=== PATIENT | male | born 1980 | race Caucasian/White ===

== ENCOUNTER 2017-08-20 19:24 | Inpatient (IN) | payer OTHER ==
[~2017-08-20] VITALS: Ht 188 cm; Wt 68.0 kg
[2017-08-20 19:45] VITALS: BP 139/82
[2017-08-20] MEDS ORDERED: DICYCLOMINE HCL 20 MG TABLET PO PRN (21:30)
[2017-08-20] MEDS ORDERED: ONDANSETRON 4 MG/2 ML VIAL IM PRN (21:30)
[2017-08-20] MEDS ORDERED: ACETAMINOPHEN 325 MG TABLET PO PRN (21:30)
[2017-08-20] MEDS ORDERED: DIAZEPAM 5 MG TABLET PO PRN (21:30)
[2017-08-20] MEDS ORDERED: BUPRENORPHINE HCL 2 MG TAB.SUBL SL PRN (21:30)
[2017-08-20] MEDS ORDERED: DIAZEPAM 10 MG TABLET PO PRN ×2 (21:30)
[2017-08-20] MEDS ORDERED: LOPERAMIDE HCL 2 MG CAPSULE PO PRN ×2 (21:30)
[2017-08-20] MEDS ORDERED: LORAZEPAM 2 MG/1 ML VIAL IM PRN (21:30)
[2017-08-20] MEDS ORDERED: DIAZEPAM 10 MG TABLET PO SCH (22:00)
[2017-08-20 22:21] LABS: *AMPHETAMINE, URINE NEGATIVE (NEGATIVE); *BARBITURATE, URINE NEGATIVE (NEGATIVE); *CANNABINOID, URINE NEGATIVE (NEGATIVE); *COCCAINE, URINE NEGATIVE (NEGATIVE); *OPIATE, URINE NEGATIVE (NEGATIVE); *PHENCYCLIDINE SCREEN,URINE NEGATIVE (NEGATIVE)
[2017-08-20] MEDS ORDERED: [UNRECOGNIZED DRUG - OTHER] NAS (22:48)
[2017-08-20] MEDS ORDERED: [UNRECOGNIZED DRUG - OTHER] (22:48)
[2017-08-20] MEDS ORDERED: [UNRECOGNIZED DRUG - OTHER] PO (22:48)
[2017-08-20] MEDS ORDERED: DIPH25CA83 PO (22:48)
[2017-08-20] MEDS ORDERED: BISA-79 PO (22:48)
[2017-08-20] MEDS ORDERED: DOCU100C36 PO (22:48)
[2017-08-20] MEDS ORDERED: TRAZ-147 PO (22:48)
[2017-08-20] MEDS ORDERED: GING500C PO (22:48)
[2017-08-20] MEDS ORDERED: 5-HY50CA2 PO (22:48)
[2017-08-20] MEDS ORDERED: ERYT3.5O24 EACHEYE (22:48)
[2017-08-20] MEDS ORDERED: LOPE2TAB57 PO (22:48)
[2017-08-20] MEDS ORDERED: BISM262T15 PO (22:48)
[2017-08-20] MEDS ORDERED: CETI-102 PO (22:48)
[2017-08-20] MEDS ORDERED: [UNRECOGNIZED DRUG - OTHER] PO (22:48)
[2017-08-20] MEDS ORDERED: [UNRECOGNIZED DRUG - OTHER] PO (22:48)
[2017-08-20] MEDS ORDERED: [UNRECOGNIZED DRUG - CODE] TP (22:48)
[2017-08-20] MEDS ORDERED: [UNRECOGNIZED DRUG - OTHER] (22:48)
[2017-08-20] MEDS ORDERED: MECL-102 PO (22:48)
[2017-08-20] MEDS ORDERED: CALC500T13 PO (22:48)
[2017-08-20] MEDS ORDERED: [UNRECOGNIZED DRUG - OTHER] PO (22:48)
[2017-08-20] MEDS ORDERED: Sinex NAS (22:48)
[2017-08-20] MEDS ORDERED: CITA10TA9 PO (22:48)
[2017-08-20] MEDS ORDERED: IBUP100O18 PO (22:48)
[2017-08-20] MEDS ORDERED: NAPH15DR62 OP (22:48)
[2017-08-20] MEDS ORDERED: NEOM14.216 TP (22:48)
[2017-08-20] MEDS ORDERED: HYPR15DR4 OP (22:48)
[2017-08-20] MEDS ORDERED: SODI126M NS (22:48)
[2017-08-20] MEDS ORDERED: HYDR28GE TP (22:48)
[2017-08-20] MEDS ORDERED: POLY10DR3 OP (22:48)
[2017-08-20] MEDS ORDERED: [UNRECOGNIZED DRUG - OTHER] (22:49)
[2017-08-20 23:08] VITALS: BP 128/87
[2017-08-20] MEDS ORDERED: DIAZEPAM 10 MG TABLET ONE (23:10)
[2017-08-20] MEDS ORDERED: CLONIDINE HCL 0.1 MG TABLET ONE (23:10)
[2017-08-20] MEDS ORDERED: METHOCARBAMOL 750 MG TABLET ONE (23:10)
[2017-08-20] MEDS ORDERED: ONDANSETRON ODT 4 MG TAB.RAPDIS ONE (23:11)
[2017-08-20] MEDS: METHOCARBAMOL 750 MG TABLET PO PRN (23:12)
[2017-08-20] MEDS: ONDANSETRON ODT 4 MG TAB.RAPDIS SL PRN (23:13)
[2017-08-21 02:40] VITALS: BP 147/92
[2017-08-21] MEDS: MAGNESIUM HYDROXIDE 30 ML LIQUID UDC PO PRN (02:44)
[2017-08-21] MEDS ORDERED: BUPRENORPHINE HCL 2 MG TAB.SUBL SL ONE ×2 (02:45→12:15)
[2017-08-21] MEDS ORDERED: MAGNESIUM HYDROXIDE 30 ML LIQUID UDC ONE (02:50)
[2017-08-21] MEDS: MAG HYDROX/AL HYDROX/SIMETH 30 ML LIQUID UDC PO PRN (03:24)
[2017-08-21] MEDS ORDERED: MAG HYDROX/AL HYDROX/SIMETH 30 ML LIQUID UDC ONE (03:36)
[2017-08-21 04:00] VITALS: BP 129/79
[2017-08-21] MEDS ORDERED: DIAZEPAM 5 MG TABLET ONE (04:11)
[2017-08-21 08:00] VITALS: BP 125/81
[2017-08-21 08:17] LABS: BASOPHILS % (AUTO) 0.9 % (0.0-2.0); EOSINOPHILS # (AUTO) 0.2 K/uL (0.0-0.7); EOSINOPHILS % (AUTO) 3.5 % (0.0-7.0); HEMATOCRIT 40.6 % (36.7-47.1); HEMOGLOBIN 14.5 g/dL (12.5-16.3); LYMPHOCYTES # (AUTO) 1.9 K/uL (20.0-40.0); MEAN CORPUSCULAR HEMOGLOBIN 34.3 uug (23.8-33.4); MEAN CORPUSCULAR HGB CONC 36 g/dL (32.5-36.3); MEAN CORPUSCULAR VOLUME 96.4 fL (73.0-96.2); MONOCYTES # (AUTO) 0.6 K/uL (2.0-10.0); MONOCYTES % (AUTO) 10.3 % (0.0-11.0); NEUTROPHILS # (AUTO) 2.7 K/uL (1.8-8.9); NEUTROPHILS % (AUTO) 50.3 % (38.5-71.5); PLATELET COUNT (AUTO) 226 K/uL (152-348); RED BLOOD CELL COUNT(AUTO) 4.21 MIL/uL (4.06-5.63); WHITE BLOOD COUNT (AUTO) 5.4 K/uL (3.6-10.2)
[2017-08-21 08:19] LABS: ETHANOL < 3 MG/DL (0-0)
[2017-08-21 08:21] LABS: ALANINE AMINOTRANSFERASE 33 U/L (16-63); ALKALINE PHOSPHATASE 52 U/L (50-136); ASPARTATE AMINOTRANSFERASE 21 U/L (15-37); BILIRUBIN,TOTAL 0.3 mg/dL (0.2-1.0); CARBON DIOXIDE 28 mmol/L (21-32); CHLORIDE 103 mmol/L (98-107); CREATININE 0.9 mg/dL (0.6-1.3); GLUCOSE 78 mg/dL (74-106); MAGNESIUM 2.4 mg/dL (1.8-2.4); POTASSIUM 3.7 mmol/L (3.5-5.1); TOTAL PROTEIN, SERUM 7.3 g/dL (6.4-8.2); UREA NITROGEN, BLOOD 9 mg/dL (7-18)
[2017-08-21] MEDS ORDERED: GABAPENTIN 300 MG CAPSULE PO SCH (09:00)
[2017-08-21] MEDS: BUPRENORPHINE HCL 2 MG TAB.SUBL SL SCH ×4 (09:00→21:00)
[2017-08-21] MEDS: DIAZEPAM 10 MG TABLET PO SCH ×3 (09:40→21:54)
[2017-08-21] MEDS: TUBERCULIN,PURIF.PROT.DERIV. 5 TU/0.1 ML TEST ID ONE ×2 (09:40→09:52)
[2017-08-21 12:00] VITALS: BP 110/69
[2017-08-21] MEDS ORDERED: BUPRENORPHINE HCL 2 MG TAB.SUBL SL PRN (16:30)
[2017-08-21] MEDS: BUPRENORPHINE HCL 2 MG TAB.SUBL SL PRN ×2 (17:58→21:53)
[2017-08-21 18:10] VITALS: BP 111/65
[2017-08-21 20:00] VITALS: BP 110/67
[2017-08-21] MEDS: ONDANSETRON ODT 4 MG TAB.RAPDIS SL PRN (20:04)
[2017-08-21] MEDS: GABAPENTIN 300 MG CAPSULE PO SCH (21:00)
[2017-08-21] MEDS: MIRALAX 17 GM POWD.PACK PO PRN (21:54)
[2017-08-22] VITALS: BP 108/66
[2017-08-22] MEDS: diphenhydrAMINE 50 MG CAPSULE PO PRN (01:15)
[2017-08-22] MEDS: BUPRENORPHINE HCL 2 MG TAB.SUBL SL PRN (01:15)
[2017-08-22] MEDS ORDERED: diphenhydrAMINE 50 MG CAPSULE ONE (01:27)
[2017-08-22 04:00] VITALS: BP 105/64
[2017-08-22 05:19] LABS: HEPATITIS B SURFACE AG Negative (Negative)
[2017-08-22 08:00] VITALS: BP 116/73
[2017-08-22] MEDS: DIAZEPAM 5 MG TABLET PO SCH ×4 (08:49→21:40)
[2017-08-22] MEDS: GABAPENTIN 300 MG CAPSULE PO SCH (08:49)
[2017-08-22] MEDS: BUPRENORPHINE HCL 2 MG TAB.SUBL SL SCH ×3 (08:49→21:40)
[2017-08-22] MEDS ORDERED: BUPRENORPHINE HCL 2 MG TAB.SUBL SL SCH ×2 (09:00→15:00)
[2017-08-22 12:00] VITALS: BP 111/76
[2017-08-22] MEDS: GABAPENTIN 400 MG CAPSULE PO SCH ×2 (15:02→21:40)
[2017-08-22 16:00] VITALS: BP 109/74
[2017-08-22 20:00] VITALS: BP 126/80
[2017-08-22] MEDS: MAGNESIUM HYDROXIDE 30 ML LIQUID UDC PO PRN (21:54)
[2017-08-23] VITALS: BP 98/51
[2017-08-23 04:00] VITALS: BP 103/66
[2017-08-23 08:00] VITALS: BP 125/71
[2017-08-23] MEDS: GABAPENTIN 400 MG CAPSULE PO SCH (08:43)
[2017-08-23] MEDS: DIAZEPAM 5 MG TABLET PO SCH ×3 (08:43→21:50)
[2017-08-23] MEDS: BUPRENORPHINE HCL 2 MG TAB.SUBL SL SCH ×3 (08:44→21:50)
[2017-08-23] MEDS: CLONIDINE HCL 0.1 MG TABLET PO PRN (10:29)
[2017-08-23] MEDS: MIRALAX 17 GM POWD.PACK PO PRN (10:30)
[2017-08-23 13:22] VITALS: BP 122/66
[2017-08-23] MEDS ORDERED: MAGNESIUM CITRATE 296 ML BOTTLE PO PRN (13:30)
[2017-08-23] MEDS ORDERED: [UNRECOGNIZED DRUG - OTHER] PO PRN (13:30)
[2017-08-23] MEDS ORDERED: [UNRECOGNIZED DRUG - OTHER] PO PRN (13:30)
[2017-08-23] MEDS ORDERED: DOCUSATE SODIUM 100 MG CAPSULE PO PRN (13:30)
[2017-08-23] MEDS: GABAPENTIN 300 MG CAPSULE PO SCH ×2 (14:34→21:50)
[2017-08-23 16:00] VITALS: BP 118/71
[2017-08-23 20:00] VITALS: BP 113/72
[2017-08-23] MEDS: MAG HYDROX/AL HYDROX/SIMETH 30 ML LIQUID UDC PO PRN (21:52)
[2017-08-24] VITALS: BP 108/67
[2017-08-24 08:00] VITALS: BP 98/60
[2017-08-24] MEDS: METHOCARBAMOL 750 MG TABLET PO PRN (08:35)
[2017-08-24] MEDS: BUPRENORPHINE HCL 2 MG TAB.SUBL SL SCH ×2 (08:35→21:14)
[2017-08-24] MEDS: GABAPENTIN 300 MG CAPSULE PO SCH ×3 (08:35→21:13)
[2017-08-24] MEDS: IBUPROFEN 600 MG TABLET PO PRN (08:35)
[2017-08-24] MEDS: DIAZEPAM 5 MG TABLET PO SCH ×2 (08:35→21:14)
[2017-08-24] MEDS: FLUTICASONE PROP NASAL SPRAY 16 GM BOTTLE NS PRN ×2 (08:50→20:14)
[2017-08-24] MEDS: CLONIDINE HCL 0.1 MG TABLET PO PRN ×2 (10:50→20:06)
[2017-08-24 12:00] VITALS: BP 129/79
[2017-08-24 16:00] VITALS: BP 116/62
[2017-08-24 20:00] VITALS: BP 113/66
[2017-08-25] VITALS: BP 95/60
[2017-08-25 04:00] VITALS: BP 91/63
[2017-08-25] MEDS: METHOCARBAMOL 750 MG TABLET PO PRN (06:22)
[2017-08-25] MEDS: FLUTICASONE PROP NASAL SPRAY 16 GM BOTTLE NS PRN (06:24)
[2017-08-25] MEDS: CLONIDINE HCL 0.1 MG TABLET PO PRN ×2 (06:24→13:13)
[2017-08-25 08:00] VITALS: BP 93/60
[2017-08-25] MEDS: IBUPROFEN 600 MG TABLET PO PRN ×2 (08:55→23:58)
[2017-08-25] MEDS: GABAPENTIN 300 MG CAPSULE PO SCH ×2 (08:55→15:11)
[2017-08-25] MEDS ORDERED: DIAZEPAM 5 MG TABLET PO SCH ×2 (09:00→21:00)
[2017-08-25] MEDS ORDERED: BUPRENORPHINE HCL 2 MG TAB.SUBL SL SCH ×2 (09:00→21:00)
[2017-08-25] MEDS ORDERED: HYDROXYZINE PAMOATE 25 MG CAPSULE PO PRN (11:30)
[2017-08-25 12:00] VITALS: BP 113/75
[2017-08-25 16:00] VITALS: BP 108/78
[2017-08-25 20:10] VITALS: BP 122/73
[2017-08-25] MEDS: CLONIDINE HCL 0.1 MG TABLET PO SCH (20:44)
[2017-08-25] MEDS ORDERED: GABAPENTIN 300 MG CAPSULE PO SCH (21:00)
[2017-08-25] MEDS: diphenhydrAMINE 50 MG CAPSULE PO PRN (23:58)
[2017-08-26 00:12] VITALS: BP 126/77
[2017-08-26 04:06] VITALS: BP 118/72
[2017-08-26 08:00] VITALS: BP 98/64
[2017-08-26] MEDS: CLONIDINE HCL 0.1 MG TABLET PO SCH ×3 (08:48→20:18)
[2017-08-26] MEDS ORDERED: BUPRENORPHINE HCL 2 MG TAB.SUBL SL SCH (09:00)
[2017-08-26] MEDS ORDERED: DIAZEPAM 5 MG TABLET PO SCH (09:00)
[2017-08-26] MEDS: GABAPENTIN 300 MG CAPSULE PO SCH ×3 (09:29→20:18)
[2017-08-26 12:00] VITALS: BP 101/58
[2017-08-26] MEDS: CLONIDINE HCL 0.1 MG TABLET PO PRN (14:29)
[2017-08-26] MEDS: METHOCARBAMOL 750 MG TABLET PO PRN (14:29)
[2017-08-26 16:00] VITALS: BP 125/72
[2017-08-26 20:00] VITALS: BP 110/68
[2017-08-26] MEDS: IBUPROFEN 600 MG TABLET PO PRN (20:30)
[2017-08-26] MEDS ORDERED: HYDR-3895 PO (23:58)
[2017-08-26] MEDS ORDERED: IBUP-1955 PO (23:58)
[2017-08-26] MEDS ORDERED: DICY20TA28 PO (23:58)
[2017-08-26] MEDS ORDERED: METH-406 PO (23:58)
[2017-08-26] MEDS ORDERED: CLON0.1T14 PO (23:58)
[2017-08-26] MEDS ORDERED: GABA-534 PO (23:58)
[2017-08-26] MEDS ORDERED: DIPH50CA37 PO (23:58)
[2017-08-27] MEDS: METHOCARBAMOL 750 MG TABLET PO PRN (06:40)
[2017-08-27] MEDS: IBUPROFEN 600 MG TABLET PO PRN (06:44)
[2017-08-27 08:05] VITALS: BP 129/77
[2017-08-27 08:07] VITALS: BP 129/77
[2017-08-27] MEDS: GABAPENTIN 300 MG CAPSULE PO SCH (08:07)
[2017-08-27] MEDS: CLONIDINE HCL 0.1 MG TABLET PO SCH (08:07)
== END 2017-08-27 09:29 | disposition other institution (70) | DRG 895 ==
LOC: SRC 19:24
PROVIDERS: ADMIT Internal Medicine; ATTEND Internal Medicine
PROC: HZ2ZZZZ Detoxification Services for Substance Abuse Treatment (ICD-10-PCS; principal; 2017-08-20)
PROC: HZ41ZZZ Group Counseling for Substance Abuse Treatment, Behavioral (ICD-10-PCS; 2017-08-22)
PROC: HZ31ZZZ Individual Counseling for Substance Abuse Treatment, Behavioral (ICD-10-PCS; 2017-08-23)
DX: F13.230 Sedative, hypnotic or anxiolytic dependence with withdrawal, uncomplicated (principal); F10.10 Alcohol abuse, uncomplicated; F11.23 Opioid dependence with withdrawal; Y90.0 Blood alcohol level of less than 20 mg/100 ml; J30.2 Other seasonal allergic rhinitis; F41.9 Anxiety disorder, unspecified; Z81.1 Family history of alcohol abuse and dependence; Z72.0 Tobacco use; F32.9 Major depressive disorder, single episode, unspecified
CPT/HCPCS: 36415; 70030-TC; 80307; 83735; 85025; 86592; 86705; 86803; 87340; 87806; A4663; G0480; J3535; Q0162; Q0163